=== PATIENT | female | born 1980 | race Caucasian/White ===

== ENCOUNTER 2018-07-01 23:00 | Emergency (ER) | payer SELFPAY ==
[~2018-07-01] VITALS: Ht 170.2 cm; Wt 57.2 kg
[2018-07-01 23:01] VITALS: BP 132/68
[2018-07-01] MEDS ORDERED: LIDOCAINE-MPF 2%, 2ML ONE (23:23)
[2018-07-01] MEDS ORDERED: LIDOCAINE 2%, 20ML SQ ONE (23:30)
[2018-07-01] MEDS ORDERED: IBUPROFEN 200 MG TABLET ONE (23:44)
[2018-07-01] MEDS ORDERED: LIDOCAINE-MPF 2%, 2ML SQ ONE (23:45)
[2018-07-02] MEDS ORDERED: IBUPROFEN 200 MG TABLET PO ONE
== END 2018-07-02 00:07 | disposition home or self-care (01) ==
LOC: ED 23:53
DX: L02.412 Cutaneous abscess of left axilla (principal)
CPT/HCPCS: 10060; 99283; J3490

== ENCOUNTER 2018-07-05 20:25 | Emergency (ER) | payer SELFPAY ==
[~2018-07-05] VITALS: Ht 167.6 cm; Wt 60.0 kg
[2018-07-05 20:29] VITALS: BP 112/79
== END 2018-07-05 21:28 | disposition left against medical advice (07) ==
LOC: ED 21:22
DX: Z48.01 Encounter for change or removal of surgical wound dressing (principal)
CPT/HCPCS: 99281